=== PATIENT | male | born 1980 | race African-American/Black ===

== ENCOUNTER 2023-05-04 18:31 | Emergency (ER) | payer BC, SELFPAY ==
[2023-05-04 18:35] VITALS: BP 157/101
[2023-05-04 19:17] VITALS: BP 179/117
[2023-05-04] MEDS: PEPCID 20 MG IV (19:17)
--- NOTE | 2023-05-04 19:18 | ED.GENMED ---
History of Present Illness
General
Chief Complaint: Chest Pain
Source: patient
Exam Limitations: none
Time Seen by Provider: 05/04/23 19:02
Travel History
Have you had any contact with someone who has COVID-19?: No
Do you have any symptoms of coronavirus? Fever > 100 degrees, chills, cough, shortness of breath, sore throat, loss of taste or smell, muscle aches, or headache?: No
History of Present Illness
History of Present Illness:
See MDM
Past History
Past History
ED Past Medical History: HTN
ED Past Surgical History: None
Social History
Tobacco: Smoker
Alcohol: Occasional
Phy Exam
Physical Exam
Physical Exam:
See MDM
Scores
Heart Score for Chest Pain Patients
STEMI patient?: No
History: Slightly or Non-Suspicious
ECG: Normal
Age: </= 45 years
Risk Factors: 1 or 2 Risk Factors
Troponin: </= Normal Limit
Heart Score for Chest Pain Patients: 1
Heart Score Risk: 2.5% MACE over next 6 weeks
Course
Orders/Labs/Results
Orders:
Orders
05/04/23 18:34
Electrocardiogram (*1) Urgent
Reason for Study: Chest Pain
EKG- Treatment ONCE
05/04/23 19:12
Famotidine [Pepcid] 20 mg IV NOW STA
05/04/23 19:15
Complete Blood Count/With Diff Urgent
Comprehensive Metabolic Panel Urgent
Troponin I Urgent
Abnormal Lab Results
05/04/23
19:15
RBC 4.64 L 10^6/uL
(4.70-6.10)
MCHC 32.9 L g/dL
(33.0-37.0)
ALT 64 H U/L
(0-50)
05/04/23 19:15
05/04/23 19:15
Vital Signs
Initial and Last Documented VS:
Initial Vital Signs
Temp Pulse Resp BP Pulse Ox
98.4 F 78 16 157/101 98
05/04/23 18:35 05/04/23 18:35 05/04/23 18:35 05/04/23 18:35 05/04/23 18:35
Last Documented Vital Signs
Temp Pulse Resp BP Pulse Ox
98.4 F 77 16 180/92 97
05/04/23 18:35 05/04/23 19:45 05/04/23 19:45 05/04/23 19:56 05/04/23 19:45
MDM/Problems Addressed
Differential Diagnosis Includes:
HPI and MDM Narrative:
43-year-old male presenting for evaluation of central chest pain. He noticed it this morning. Patient was drinking mimosas and developed pain. He denies a history of reflux. Patient is concerned because he has a history of uncontrolled high
blood pressure and he is an active smoker. Symptoms are not worse with exertion
On exam, he is well-appearing and nontoxic. EKG nonischemic. Given duration of symptoms, will obtain troponin. We discussed cessation of smoking and discussed possible reflux. Patient states he is already feeling better. Will give Pepcid
Physical exam
General: Well appearing and non-toxic
HEENT: protecting airway
Neck: appears supple
CV: No evidence of cyanosis. Regular rate and rhythm
Resp: No accessory muscle use. Lungs clear
Abd: Non-distended and nontender
Extremities: No deformities
Neuro: alert
Psych: Normal affect
Skin: Intact
Problems Addressed including Acute and Chronic Conditions affecting care:
1. Chest pain
Acuity: acute
Prognosis: stable
Details: Given no exertional component with a normal EKG, doubt ACS. Will obtain troponin. Will give Pepcid with possible gastric
2. Hypertension
Acuity: acute
Prognosis: stable
Details: Spouse at bedside indicating that patient often forgets to take his blood pressure medicine. Patient acknowledges this and will be more compliant
Updates
Troponin negative, patient feeling better. Discussed return precautions
Differential Diagnosis (but not limited to): Gastritis, noncardiac chest pain
Testing considered: Chest x-ray but lungs clear
Drug therapy (if applicable): OTC meds, please see d/c instruction regarding Rx drugs
Amount and/or Complexity of Data Reviewed
Clinical info obtained from: Patient
External data reviewed: N/A
Labs I independently reviewed (but not limited to): Troponin negative
Radiology: N/A
Pulse Ox: not hypoxic
EKG independently reviewed: Sinus rhythm, normal axis, no STEMI
Solar Sales Estimator: N/A
Critical Care: N/A
Risk of Complication:
Social Determinants of health: Good social support
Discussed with other providers: N/A
Escalation of Care includes Admit/Obs: After being observed in the Emergency Department, pt stable for discharge.
Occasional wrong word or 'sound a like' substitutions may have occurred due to the inherent limitations of voice recognition software. Read the chart carefully and recognize, using context, where substitutions have occurred.
*Critical Care Note
Total Time (30-74mins, 75-104mins- exclusive of procedures): Not Applicable
ED Attending Note
-
Portions of this chart may have been created with voice recognition software.� Occasional wrong word or��sound alike� substitutions may have occurred due to the inherent limitations of voice recognition software.
Discharge Plan
Departure
Patient Disposition: Home (Routine Discharge)
Date of Disposition: 05/04/23
Time of Disposition: 19:57
Patient with high blood pressure during this ER visit?: Yes
Discharge Problem:
Chest pain
Instructions: Chest Pain PCP Follow Up, BLOOD PRESSURE
Referrals:
Fouzia Brink PA-C [Family Provider] -
Activity Restrictions/Additional Instructions:
Please return for any worsening symptoms.
You may return at any time if you have further concerns.
Please follow up with your doctor at the first available appointment, preferably this week. You must be compliant with your blood pressure medicine.
Thank you for choosing [facility].
Interventions
Interventions:
*Risk Screen - Suicide Last Done: 05/04/23 18:35
*Neglect/Abuse Screening Last Done: 05/04/23 18:35
ED- Cardiac Assessment Last Done: 05/04/23 19:32
[2023-05-04 19:29] LABS: % Basophils 0.3 % (0-2); % Eosinophils 2.7 % (0-6); % Immature Granulocytes 0.2 % (0-0.5); % Lymphocytes 38.5 % (20.5-51.1); % Monocytes 7.7 % (1.7-9.3); % Neutrophils 50.6 % (42.2-75.2); Absolute Eosinophils 0.2 10^3/uL (0-0.7); Absolute Lymphocytes 2.3 10^3/uL (1.2-3.4); Absolute Monocytes 0.5 10^3/uL (0.1-0.6); Hematocrit 41.4 % (39.0-52.0); Hemoglobin 13.6 g/dL (13.0-18.0); Mean Corp Hgb Conc. 32.9 g/dL (33.0-37.0); Mean Corpuscular Hgb 29.3 pg (27.0-31.0); Mean Corpuscular Volume 89.2 fL (80.0-94.0); Mean Platelet Volume 9.8 fL (7.4-10.4); Nucleated Red Blood Cells % 0 % (-); Platelet Count 257 10^3/uL (130-400); Red Blood Cell Count 4.64 10^6/uL (4.70-6.10); Red Cell Dist. Width 11.6 % (11.5-14.5)
[2023-05-04 19:42] LABS: ALT (SGPT) 64 U/L (0-50); AST (SGOT) 55 U/L (17-59); Albumin 4.5 g/dl (3.5-5.0); Alkaline Phosphatase 68 U/L (38-126); Blood Urea Nitrogen 16 mg/dl (9-20); Calcium 9.4 mg/dl (8.4-10.2); Carbon Dioxide 28 mmol/L (22-30); Chloride 101 mmol/L (98-107); Glucose 91 mg/dl (70-99); Potassium 4.2 mmol/L (3.5-5.1); Sodium 139 mmol/L (135-145); Total Bilirubin 0.6 mg/dl (0.2-1.3); Total Protein 7.8 g/dl (6.3-8.2); eGFR > 60.00
[2023-05-04 19:52] LABS: Troponin I < 0.012 ng/ml
[2023-05-04 19:56] VITALS: BP 180/92
== END 2023-05-04 20:08 | disposition home or self-care (01) ==
LOC: EMR 18:31
PROVIDERS: EMERGENCY PHYSICIAN Student in an Organized Health Care Education/Training Program; FAMILY PHYSICIAN Physician Assistant
DX: R07.89 Other chest pain (principal); I10 Essential (primary) hypertension; F17.200 Nicotine dependence, unspecified, uncomplicated
CPT/HCPCS: 99284; 96374; 80053; 84484; 85025; 93005

== ENCOUNTER 2024-03-15 10:48 | Emergency (ER) | payer BC, SELFPAY ==
[2024-03-15 11:08] VITALS: BP 174/109
--- NOTE | 2024-03-15 13:33 | ED.GENMED ---
History of Present Illness
General
Chief Complaint: Back Pain
Time Seen by Provider: 03/15/24 13:23
History of Present Illness
History of Present Illness:
44-year-old male with history of hypertension and hyperlipidemia presents to the emergency department for evaluation of low back pain. He states that he jumped out of a truck while at work 2 weeks ago landing on his feet, shortly thereafter
developed gradually worsening low back pain. Denies any lower extremity radiation of symptoms. In the past week he has had pelvic discomfort in addition to the increasing low back pain and had 1 episode of nocturnal enuresis. Went to urgent care
today and due to the urinary episode was referred to the ED for urgent MRI. He denies any saddle anesthesias, lower extremity radiculopathy. Has been able to control his urine stream over the past several days
Past History
Past History
ED Past Medical History: HTN
ED Past Surgical History: None
Social History
Tobacco: Smoker
Alcohol: Occasional
Review of Systems
Review of Systems
Allergies reviewed?: Yes
All Other Systems: ROS reviewed and negative except as documented in HPI and ROS
Phy Exam
Physical Exam
Physical Exam:
GEN: Well appearing, NAD, WDWN
HEENT: Oral mucosa moist, no scleral icterus
Cardiac: Regular rate
Lung: No respiratory distress, no tachypnea
MSK: No gross deformity or injuries. Minimal tenderness to bilateral lumbosacral musculature. LLE strength 4+/5, RLE strength 5/5 all espinal. Patellar reflexes 1+ bilat. Normal sensation throughout BLE
Skin: Good color, no pallor or jaundice, no rashes
Neuro: AO x3, moves all extremities freely
Psych: Calm, cooperative
Course
Orders/Labs/Results
Orders:
Orders
03/15/24 13:32
Bladder Scan- Treatment ONCE
Comment: post void residual
03/15/24 14:30
Urinalysis Reflex To Culture Urgent
Date Specimen was Collected: 03/15/24
Time Specimen was Collected: 13:37
Urine Microscopic Reflex Cult Urgent
Urine Culture Urgent
SAMMIE Source: U
Specimen Description:
Date Specimen was Collected: 03/15/24
Time Specimen was Collected: 13:37
03/15/24 14:54
CR Lumbar Spine Comp Min 4 Vw* Urgent
Comment:
Reason For Exam: fall back pain
Abnormal Lab Results
03/15/24
14:30
Leukocyte Esterase Rfl 2+ A
(Negative)
Urine Bacteria (Reflex) Few A
(Negative)
Vital Signs
Initial and Last Documented VS:
Initial Vital Signs
Temp Pulse Resp BP Pulse Ox
99.6 F 98 18 174/109 100
03/15/24 11:08 03/15/24 11:08 03/15/24 11:08 03/15/24 11:08 03/15/24 11:08
Last Documented Vital Signs
Temp Pulse Resp BP Pulse Ox
98.5 F 82 16 135/82 99
03/15/24 14:30 03/15/24 14:30 03/15/24 14:30 03/15/24 14:30 03/15/24 14:30
MDM/Problems Addressed
MDM/Problems Addressed:
Patient has minimal postvoid residual and has no saddle anesthesias, at this time there is no indication for urgent MRI. He does have some degree of left lower extremity weakness on exam, however gait is steady with no deficit. Interestingly he
feels as though the right leg is weaker. This could likely represent acute disc herniation. X-ray shows no evidence for compression fracture. Ultimately he may require outpatient but there is no indication for urgent MRI as cauda equina is not
suspected given the clinical presentation. Will treat with NSAIDs and recommend outpatient PT and occupational medicine follow-up as this was a work injury
*Critical Care Note
Total Time (30-74mins, 75-104mins- exclusive of procedures): Not Applicable
ED Attending Note
-
Portions of this chart may have been created with voice recognition software.� Occasional wrong word or��sound alike� substitutions may have occurred due to the inherent limitations of voice recognition software.
Discharge Plan
Departure
Patient Disposition: Home (Routine Discharge)
Date of Disposition: 03/15/24
Time of Disposition: 16:05
Patient with high blood pressure during this ER visit?: No
Discharge Problem:
Lumbar sprain
Instructions: Low Back Pain (DC)
Prescriptions:
New
celecoxib [Celebrex] 200 mg capsule
200 mg PO BID Qty: 30 0RF
Referrals:
Fouzia Brink PA-C [Family Provider] -
Activity Restrictions/Additional Instructions:
You will likely need physical therapy
Follow up with your occupational medicine provider for further management
Interventions
Interventions:
*Risk Screen - Suicide Last Done: 03/15/24 11:08
*General Assessment Last Done: 03/15/24 11:08
*Neglect/Abuse Screening Last Done: 03/15/24 14:30
ED- Fall Risk Assessment Last Done: 03/15/24 14:30
*ED COVID-19 Vaccine History Last Done: 03/15/24 14:30
*Nursing Disposition Last Done: 03/15/24 16:10
ED-Musculoskeletal Assessment Last Done: 03/15/24 14:30
Discharge Date and Time
Discharge Date/Time: 03/15/24 16:27
Print Language: GREENLANDIC
[2024-03-15 14:30] VITALS: BP 135/82; BMI 31.4
--- NOTE | 2024-03-15 14:45 | EDRN ---
Remington ABREU currently at the pts bedside
[2024-03-15 15:24] LABS: Urine Albumin Negative (Neg - Trace); Urine Bilirubin Negative (Negative); Urine Character Clear (Clear); Urine Color Yellow; Urine Glucose Negative (Negative); Urine Ketone Negative (Negative); Urine Leukocyte 2+ (Negative); Urine Nitrite Negative (Negative); Urine Occult Blood Negative (Negative); Urine Urobilinogen Negative (Neg - 1+)
[2024-03-15 15:33] LABS: Urine Bacteria Few (Negative); Urine Mucus Few; Urine Red Blood Cell 0-2 /HPF (0-2)
== END 2024-03-15 16:27 | disposition home or self-care (01) ==
LOC: EMR 10:48
PROVIDERS: Physician Assistant; EMERGENCY PHYSICIAN Emergency Medicine; FAMILY PHYSICIAN Physician Assistant
DX: S33.5XXA Sprain of ligaments of lumbar spine, initial encounter (principal); X58.XXXA Exposure to other specified factors, initial encounter; E78.00 Pure hypercholesterolemia, unspecified; I10 Essential (primary) hypertension; F17.200 Nicotine dependence, unspecified, uncomplicated
CPT/HCPCS: 99283; 72110; 81003; 81015; 87086

== ENCOUNTER 2024-04-10 20:08 | Emergency (ER) | payer BC, SELFPAY ==
[2024-04-10 20:14] VITALS: BP 158/110
[2024-04-10 21:39] VITALS: BP 158/94
[2024-04-10 21:40] VITALS: BMI 32.3
--- NOTE | 2024-04-10 23:40 | EDRN ---
Went in to update patient on delay on seeing provider, patient resting comfortably, provided patient with a turkey sandwich and drink of water, will continue to monitor.
--- NOTE | 2024-04-11 00:27 | ED.GENMED ---
History of Present Illness
General
Chief Complaint: Back Pain
Source: patient
Exam Limitations: none
Time Seen by Provider: 04/11/24 00:18
Nursing documentation reviewed up to this point in time: agreed with
History of Present Illness
History of Present Illness:
Pleasant 44-year-old male presents to the emergency department with acute on chronic low back pain. Patient had a low back injury 1 month ago was seen in the emergency department. He has been feeling well since discharge. Today he developed
diarrhea, stating he has had 10-15 bowel movements today. He is concerned because his discharge paperwork from the ER a month ago stated that if he had any change in bowel function he should come back to the emergency department. He states that
his back pain is stable or improving but certainly not worse. Denies fever, chills, nausea or vomiting.
Past History
Past History
ED Past Medical History: HTN
ED Past Surgical History: None
Social History
Tobacco: Smoker
Alcohol: Occasional
Review of Systems
Review of Systems
All Other Systems: Not applicable
Constitutional: Reports no symptoms
EENT: Reports no symptoms
Respiratory: Reports no symptoms
Cardiac: Reports no symptoms
ABD/GI: Reports no symptoms
: Reports no symptoms
Musculoskeletal: Reports no symptoms
Skin: Reports no symptoms
Neurological: Reports no symptoms
Endocrine: Reports no symptoms
Hematologic/Lymphatic: Reports no symptoms
Psychiatric: Reports no symptoms
Phy Exam
General Physical Exam
General Presentation: well appearing and no apparent distress
General Skin: warm and dry
General Habitus: normal
General Mental: alert
General Hydration: appears well hydrated
ENT Exam
ENT Exam: EOMI, pharynx normal, neck supple and normocephalic
Eye Exam
Eye Exam: PERRL, cornea clear and conjunctiva normal
Cardiovascular Exam
Cardiovascular Exam: regular rate/rhythm, no edema, no murmur and normal peripheral pulses
Pulmonary Exam
Pulmonary Exam: lungs clear, no respiratory distress, no rales, no crackles, no rhonchi, no stridor, no wheezing and no cough
Gastrointestinal Exam
Gastrointestinal Exam: normal bowel sounds, non tender, soft, no organomegaly, no pulsatile mass and non distended
Neurological Exam
Neurological Exam: alert, oriented x3, no motor deficits and speech normal
Musculoskeletal Exam
Musculoskeletal Exam: full ROM and no edema
Skin Exam
Skin Exam: normal color, warm/dry, no rash and no petechia
Psychiatric Exam
Psychiatric Exam: normal mood/affect
Course
Orders/Labs/Results
Orders:
Orders
04/11/24 00:27
CT Abd/pelvis W Iv Cont Urgent
Comment:
Reason For Exam: diarrhea, LBP
04/11/24 00:39
Complete Blood Count/With Diff Urgent
Comprehensive Metabolic Panel Urgent
Urinalysis Reflex To Culture Urgent
Date Specimen was Collected: 04/11/24
Time Specimen was Collected: 00:36
Urine Microscopic Reflex Cult Urgent
Urine Culture Urgent
SAMMIE Source: U
Specimen Description:
Date Specimen was Collected: 04/11/24
Time Specimen was Collected: 00:36
Abnormal Lab Results
04/11/24
00:39
RBC 4.41 L 10^6/uL
(4.70-6.10)
Hgb 12.9 L g/dL
(13.0-18.0)
MCHC 32.3 L g/dL
(33.0-37.0)
BUN 23 H mg/dl
(9-20)
Glucose 137 H mg/dl
(70-99)
AST 63 H U/L
(17-59)
ALT 109 H U/L
(0-50)
Leukocyte Esterase Rfl 1+ A
(Negative)
04/11/24 00:39
04/11/24 00:39
Vital Signs
Initial and Last Documented VS:
Initial Vital Signs
Temp Pulse Resp BP Pulse Ox
98.6 F 95 18 158/110 97
04/10/24 20:14 04/10/24 20:14 04/10/24 20:14 04/10/24 20:14 04/10/24 20:14
Last Documented Vital Signs
Temp Pulse Resp BP Pulse Ox
98.6 F 98 16 158/100 97
04/10/24 20:14 04/11/24 03:59 04/11/24 03:59 04/11/24 03:59 04/11/24 03:59
*Radiology
Radiology exam reviewed: radiology read reviewed
*Pulse Oximetry
Patient hypoxic: no
*Critical Care Note
Total Time (30-74mins, 75-104mins- exclusive of procedures): Not Applicable
Update Note
Update Note:
CT ABDOMEN AND PELVIS WITH IV CONTRAST
IMPRESSION
No specific findings to account for the patient's abdominal pain.
Normal appendix.
No renal or obstructing ureteral stones. No hydronephrosis or hydroureter.
Bowel is without evidence of obstruction.
Gallbladder is unremarkable. No obvious stones but CT has a diminished sensitivity for noncalcified gallstones. No biliary dilatation.
At least moderate fatty liver
Minor disk bulges in the lower lumbar spine.
Patient ready to go home. He does have an appointment with [facility] orthopedics as a follow-up for this Friday. He has had an initial appointment with Kai and was evaluated and put into physical therapy. This is a Worker's Comp. case and he
also has a family preservation caseworker that is actively aiding in his recovery. Currently patient denies bowel or bladder retention or incontinence. He states that he is full sphincters tone and does not feel any perianal numbness. He states that he walks
normally. At this point I do not feel that this is cauda equina syndrome. Patient being discharged in improved condition.
ED Attending Note
-
Portions of this chart may have been created with voice recognition software.� Occasional wrong word or��sound alike� substitutions may have occurred due to the inherent limitations of voice recognition software.
Discharge Plan
Departure
Patient Disposition: Home (Routine Discharge)
Date of Disposition: 04/11/24
Time of Disposition: 04:29
Patient with high blood pressure during this ER visit?: Yes
Condition: Good
Discharge Problem:
Low back pain, Diarrhea
Instructions: Low Back Pain (DC), Acute Diarrhea, BLOOD PRESSURE
Prescriptions:
No Action
celecoxib [Celebrex] 200 mg capsule
200 mg PO BID Qty: 30 0RF
Referrals:
Fouzia Brink PA-C [Family Provider] -
Activity Restrictions/Additional Instructions:
It was a pleasure meeting you and taking part in your care. We hope for your continued healing and wellness.
Please read discharge instructions in their entirety. However, they are for general education and may not describe your exact diagnosis at discharge. Information on your ER visit and medical conditions were discussed with you along with appropriate
follow up information...
If indicated, please take your medications as instructed and indicated on discharge paperwork.
Please schedule a follow up appointment as directed. Call to schedule an appointment
Please return to the emergency department with ANY change in, persisting, or worsening of symptoms. If any of your symptoms do not improve, or persist, or become more severe within 6-12 hours, please return to the emergency department for further
care.
Please return to the emergency department if you develop a headache, neck pain/stiffness, fever greater than 100.4F, chest pain, shortness of breath, persistent nausea, vomiting, slurred speech, difficulty walking, numbness/tingling, weakness, signs
of infection or any other symptoms that are worrisome to you.
If you have any questions or concerns please do not hesitate to call the Hospital at or E-mail me directly at [email or web address]
Interventions
Interventions:
*Risk Screen - Suicide Last Done: 04/10/24 20:14
*General Assessment Last Done: 04/10/24 20:14
*Neglect/Abuse Screening Last Done: 04/10/24 20:14
ED- Fall Risk Assessment Last Done: 04/10/24 22:00
*ED COVID-19 Vaccine History Last Done: 04/10/24 20:14
ED-Musculoskeletal Assessment Last Done: 04/10/24 22:00
Discharge Date and Time
Print Language: GREEK
[2024-04-11 00:58] LABS: Urine Albumin Negative (Neg - Trace); Urine Bilirubin Negative (Negative); Urine Character Clear (Clear); Urine Color Yellow; Urine Glucose Negative (Negative); Urine Ketone Negative (Negative); Urine Leukocyte 1+ (Negative); Urine Nitrite Negative (Negative); Urine Occult Blood Negative (Negative); Urine Specific Gravity 1.025 (<1.030); Urine Urobilinogen Negative (Neg - 1+)
[2024-04-11 01:06] LABS: % Basophils 0.6 % (0-2); % Eosinophils 2.5 % (0-6); % Immature Granulocytes 0.2 % (0-0.5); % Lymphocytes 42.3 % (20.5-51.1); % Monocytes 6.9 % (1.7-9.3); % Neutrophils 47.5 % (42.2-75.2); Absolute Eosinophils 0.1 10^3/uL (0-0.7); Absolute Lymphocytes 2.2 10^3/uL (1.2-3.4); Absolute Monocytes 0.4 10^3/uL (0.1-0.6); Absolute Neutrophils 2.5 10^3/uL (1.4-6.5); Hematocrit 39.9 % (39.0-52.0); Hemoglobin 12.9 g/dL (13.0-18.0); Mean Corp Hgb Conc. 32.3 g/dL (33.0-37.0); Mean Corpuscular Hgb 29.3 pg (27.0-31.0); Mean Corpuscular Volume 90.5 fL (80.0-94.0); Mean Platelet Volume 10.3 fL (7.4-10.4); Nucleated Red Blood Cells % 0 % (-); Platelet Count 219 10^3/uL (130-400); Red Blood Cell Count 4.41 10^6/uL (4.70-6.10); Red Cell Dist. Width 11.9 % (11.5-14.5); White Blood Cell Count 5.2 10^3/uL (4.8-10.8)
[2024-04-11 01:21] LABS: ALT (SGPT) 109 U/L (0-50); AST (SGOT) 63 U/L (17-59); Albumin 4.3 g/dl (3.5-5.0); Alkaline Phosphatase 56 U/L (38-126); Blood Urea Nitrogen 23 mg/dl (9-20); Calcium 9.2 mg/dl (8.4-10.2); Carbon Dioxide 24 mmol/L (22-30); Chloride 105 mmol/L (98-107); Estimated Creatinine Clearance > 125 ml/min; Glucose 137 mg/dl (70-99); Potassium 4.3 mmol/L (3.5-5.1); Sodium 140 mmol/L (135-145); Total Bilirubin 0.8 mg/dl (0.2-1.3); eGFR > 60.00
[2024-04-11 01:40] LABS: Urine Red Blood Cell 0-2 /HPF (0-2)
[2024-04-11 03:59] VITALS: BP 158/100
--- NOTE | 2024-04-11 03:59 | EDRN ---
Patient resting comfortably, BP is high, patient is on Amlodipine at home, Dr. Faye reports ok for him to take home meds.
== END 2024-04-11 04:37 | disposition home or self-care (01) ==
LOC: EMR 20:08
PROVIDERS: EMERGENCY PHYSICIAN Student in an Organized Health Care Education/Training Program; FAMILY PHYSICIAN Physician Assistant
DX: M54.50 Low back pain, unspecified (principal); G89.29 Other chronic pain; R19.7 Diarrhea, unspecified; M51.369 Other intervertebral disc degeneration, lumbar region without mention of lumbar back pain or lower extremity pain; I10 Essential (primary) hypertension; F17.200 Nicotine dependence, unspecified, uncomplicated; K76.0 Fatty (change of) liver, not elsewhere classified
CPT/HCPCS: 99284; 74177; 80053; 81003; 81015; 85025; 87086; Q9967